=== PATIENT | male | born 1985 | race Caucasian/White ===

== ENCOUNTER 2018-05-08 23:16 | Emergency (ER) | payer OTHER ==
[2018-05-09] MEDS: LIDOCAINE 1% MDV 20ML VIAL IM (00:12)
== END 2018-05-09 00:38 | disposition home or self-care (01) ==
LOC: M ED 23:16
DX: S61.211A Laceration without foreign body of left index finger without damage to nail, initial encounter (principal); W26.8XXA Contact with other sharp object(s), not elsewhere classified, initial encounter; Y92.098 Other place in other non-institutional residence as the place of occurrence of the external cause; Z87.891 Personal history of nicotine dependence
CPT/HCPCS: 12002

== ENCOUNTER 2020-10-01 16:31 | Emergency (ER) | payer OTHER ==
[~2020-10-01] VITALS: Ht 180.3 cm; Wt 78.2 kg
[2020-10-01] MEDS ORDERED: FLUORESCEIN OPHTH 1 MG STRIP OS ONE (17:40)
[2020-10-01] MEDS ORDERED: PROPARACAINE 0.5% OPHTH SOL 15ML OS ONE (17:40)
[2020-10-01] MEDS ORDERED: ERYTHROMYCIN OPHTH OINT OS ONE (18:15)
[2020-10-01] MEDS ORDERED: ERYT5OIN25 OS (18:16)
[2020-10-01 18:24] VITALS: BP 129/62
== END 2020-10-01 19:08 | disposition home or self-care (01) ==
LOC: M ED 16:31
DX: T15.02XA Foreign body in cornea, left eye, initial encounter (principal); X58.XXXA Exposure to other specified factors, initial encounter; Y92.89 Other specified places as the place of occurrence of the external cause; F17.210 Nicotine dependence, cigarettes, uncomplicated

== ENCOUNTER → 2023-03-14 | Outpatient (REF) | payer OTHER ==
[~2023-03-14] MED LIST: ERYT5OIN25 OS; IBUP-1114 PO
== END ==
LOC: M LABSMT 09:57
PROVIDERS: ATTEND Urology
DX: Z30.2 Encounter for sterilization (principal)
CPT/HCPCS: 55250; 88302; J0665

== ENCOUNTER 2023-04-09 12:04 | Emergency (ER) | payer OTHER ==
[~2023-04-09] VITALS: Ht 180.3 cm; Wt 87.0 kg
[~2023-04-09 12:04] MED LIST changes: -IBUP-1114 PO
[2023-04-09 14:11] VITALS: TEMP 98.7
[2023-04-09] MEDS ORDERED: IBUP-1114 PO (16:32)
[2023-04-09 16:39] VITALS: BP 139/86; O2SAT 98
== END 2023-04-09 16:40 | disposition home or self-care (01) ==
LOC: M ED 12:04
DX: N50.811 Right testicular pain (principal); N49.2 Inflammatory disorders of scrotum; T88.9XXA Complication of surgical and medical care, unspecified, initial encounter; F17.290 Nicotine dependence, other tobacco product, uncomplicated; Z79.1 Long term (current) use of non-steroidal anti-inflammatories (NSAID)